=== PATIENT | female | born 1965 | race Caucasian/White ===

== ENCOUNTER → 2019-11-16 11:52 | Outpatient (CLI) | payer BC, OTHER, SELFPAY ==
--- NOTE | ~2019-11-16 | XR_ITS ---
EXAMINATION: XR knee LT 2V DATE: 11/16/2019 12:14 INDICATION: Left knee pain. TECHNIQUE: 2 views of left knee were obtained. COMPARISON: None. FINDINGS: Bone alignment is normal. No fracture. There is mild osteoarthritis of medial compartment. No knee joint effusion. IMPRESSION: 1. Mild left knee osteoarthritis. Reviewed, dictated and finalized at location A. 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
== END ==
PROVIDERS: PCP Physician Assistant; Visit Provider Physician Assistant
DX: M17.12 Unilateral primary osteoarthritis, left knee (principal)
CPT/HCPCS: 73560

== ENCOUNTER → 2020-06-06 10:34 | Outpatient (CLI) | payer BC, OTHER, SELFPAY ==
--- NOTE | ~2020-06-06 | XR_ITS ---
EXAMINATION: XR_CERV2-3V_CR EXAM DATE: 06/06/2020 10:47 INDICATION: Cervicalgia. TECHNIQUE: Frontal, lateral, lateral swimmers projection cervical spine. There is no prior study fo r comparison. FINDINGS: There is moderate disc disease at C5-6 with 2 mm retrolisthesis. The vertebral body and di sc heights are otherwise well maintained. The vertebral bodies are otherwise aligned. Straightening o f normal cervical lordosis could be positional or spasm. There is mild to moderate cervical arthropat hy. The odontoid process is intact. The lateral masses of C1 line up with C2. IMPRESSION: 1. Moderate C5-6 disc disease. 2. Mild to moderate cervical arthropathy. Reviewed, dictated and finalized at location B.
== END ==
PROVIDERS: PCP Family Medicine; Visit Provider Family Medicine
DX: M50.322 Other cervical disc degeneration at C5-C6 level (principal)
CPT/HCPCS: 72040

== ENCOUNTER → 2020-06-07 16:02 | Outpatient (CLI) | payer BC, OTHER, SELFPAY ==
--- NOTE | ~2020-06-07 | MM_ITS ---
EXAMINATION: MM screening [facility] BI w johnna HISTORY: Screening mammogram TECHNIQUE: Craniocaudal and mediolateral oblique 3-D tomosynthesis images were obtained and synthetic 2-D images were generated. CAD analysis was submitted and interpreted. COMPARISON: 11/17/2018, 10/25/2017, 09/01/2016 BREAST PARENCHYMAL COMPOSITION: The breasts are almost entirely fatty. FINDINGS: There is no evidence of suspicious mass, calcification, or architectural distortion to sugg est malignancy in either breast. There has been no suspicious interval change. IMPRESSION: 1. No mammographic evidence of malignancy. 2. Recommend routine screening mammography in one year. BI-RADS Category 1: Negative Reviewed, dictated and finalized at location A.
== END ==
PROVIDERS: Visit Provider Obstetrics & Gynecology Gynecology
DX: Z12.31 Encounter for screening mammogram for malignant neoplasm of breast (principal)
CPT/HCPCS: 77063; 77067

== ENCOUNTER 2020-12-23 17:24 | Outpatient (CLI) | payer BC, OTHER, SELFPAY | END 2020-12-23 17:25 | disposition home or self-care (01) | LOC: ANHCOVIDVC 17:24 | PROVIDERS: PCP Family Medicine | DX: Z23 Encounter for immunization (principal) | CPT/HCPCS: 0001A; 91300 ==

== ENCOUNTER 2021-01-13 17:22 | Outpatient (CLI) | payer BC, OTHER, SELFPAY | END 2021-01-13 17:23 | disposition home or self-care (01) | LOC: ANHCOVIDVC 17:22 | PROVIDERS: PCP Family Medicine | DX: Z23 Encounter for immunization (principal) | CPT/HCPCS: 0002A; 91300 ==

== ENCOUNTER → 2021-06-11 07:16 | Outpatient (CLI) | payer OTHER, SELFPAY ==
--- NOTE | ~2021-06-11 | XR_ITS ---
XR knee LT 3V 06/11/2021 07:50 Indication: Left knee pain Procedure: 3 views left knee Comparison: 11/16/2019 Findings: No fracture, subluxation or dislocation. Small joint effusion. No foreign bodies. There is mild patellofemoral compartment osteoarthritis. Impression: 1: Mild osteoarthritis of the left knee. 2: Small joint effusion. Reviewed, dictated and finalized at location A. Impression: 1: Mild osteoarthritis of the left knee. 2: Small joint effusion.
== END ==
PROVIDERS: PCP Family Medicine; Visit Provider Family Medicine
DX: M17.12 Unilateral primary osteoarthritis, left knee (principal); M25.462 Effusion, left knee
CPT/HCPCS: 73562

== ENCOUNTER → 2021-08-05 07:27 | Outpatient (CLI) | payer OTHER, SELFPAY ==
--- NOTE | ~2021-08-05 | MM_ITS ---
EXAMINATION: MM screening [facility] BI w johnna HISTORY: Screening mammogram TECHNIQUE: Craniocaudal and mediolateral oblique 3-D tomosynthesis images were obtained and synthetic 2-D images were generated. CAD analysis was submitted and interpreted. COMPARISON: 06/07/2020, 11/17/2018, 10/25/2017 BREAST PARENCHYMAL COMPOSITION: The breasts are almost entirely fatty. FINDINGS: There is no evidence of suspicious mass, calcification, or architectural distortion to sugg est malignancy in either breast. There has been no suspicious interval change. IMPRESSION: 1. No mammographic evidence of malignancy. 2. Recommend routine screening mammography in one year. BI-RADS Category 1: Negative Reviewed, dictated and finalized at location A. H BRAZER
== END ==
PROVIDERS: PCP Family Medicine; Visit Provider Obstetrics & Gynecology Gynecology
DX: Z12.31 Encounter for screening mammogram for malignant neoplasm of breast (principal)
CPT/HCPCS: 77063; 77067

== ENCOUNTER → 2022-12-10 12:58 | Outpatient (CLI) | payer OTHER, SELFPAY ==
--- NOTE | ~2022-12-10 | MM_ITS ---
EXAMINATION: MM screening [facility] w johnna HISTORY: Screening TECHNIQUE: Craniocaudal and mediolateral oblique 3-D tomosynthesis images were obtained and synthetic 2-D images were generated. CAD analysis was submitted and interpreted. COMPARISON: Comparison to multiple prior studies sequentially, with oldest reviewed study dated 08/15. BREAST PARENCHYMAL COMPOSITION: The breasts are almost entirely fatty. FINDINGS: There is no evidence of suspicious mass, calcification, or architectural distortion to sugg est malignancy in either breast. There has been no suspicious interval change. IMPRESSION: 1. No mammographic evidence of malignancy. 2. Recommend routine screening mammography in one year. BI-RADS Category 1: Negative Reviewed, dictated and finalized at location A.
== END ==
PROVIDERS: PCP Internal Medicine; Visit Provider Obstetrics & Gynecology Gynecology
DX: Z12.31 Encounter for screening mammogram for malignant neoplasm of breast (principal)
CPT/HCPCS: 77063; 77067

== ENCOUNTER → 2023-01-20 15:43 | Outpatient (CLI) | payer OTHER, SELFPAY ==
--- NOTE | ~2023-01-20 | DEXA_ITS ---
Bone Density Report Name: KASSI RIVAS Age: 57 Sex: Female Ethnicity: White Date of : 1965 Indication: postmenopausal; screening for osteoporosis; prior fracture; hysterectomy; Referring Provider: RAY, KIET Study: Bone densitometry was performed. Exam Date: January 20, 2023 Accession number: [id number] Bone Density: Region BMD T-score Z-score Classification AP Spine (L1-L4) 1.008 -0.4 1.0 Normal Femoral Neck (Left) 0.776 -0.7 0.6 Normal Total Hip (Left) 1.006 0.5 1.4 Normal Femoral Neck (Right) 0.771 -0.7 0.5 Normal Total Hip (Right) 0.999 0.5 1.4 Normal Total Hip Mean 1.003 0.5 1.4 Normal World Health Organization criteria for BMD impression classify patients as: Normal (T-score at or above -1.0), Osteopenia (T-score between -1.0 and -2.5), or Osteoporosis (T-score at or below -2.5). 10-year Fracture Risk: FRAX not reported because: All T-scores for Spine Total, Hip Total, Femoral Neck at or above -1.0 Previous Exams: Region Exam Age BMD T-score BMD Change BMD Change Date g/cm2 vs Baseline vs Previous AP Spine(L1-L4) 01/20/2023 57 1.008 -0.4 -0.085* -0.003 11/17/2018 53 1.011 -0.3 -0.082* -0.082* 07/05/2014 48 1.093 0.4 Total Hip(Left) 01/20/2023 57 1.006 0.5 -0.032* -0.018 11/17/2018 53 1.024 0.7 -0.015 -0.015 07/05/2014 48 1.038 0.8 Total Hip(Right) 01/20/2023 57 0.999 0.5 -0.019 0.018 11/17/2018 53 0.982 0.3 -0.036* -0.036* 07/05/2014 48 1.018 0.6 *Denotes significance at 95% confidence level, LSC for AP Spine = 0.022 g/cm2, LSC for Total Hip = 0.027 g/cm2 Clinical Information Provided by Patient: Has had a low trauma fracture Has used the following medications: Vitamin D, MTV, LEVOTHYROXINE Has the following medical conditions: Hysterectomy Patient maximum height was 62.0 Menopause Age: 47 No regular weight bearing exercise Does not regularly consume dairy products Onset of menses at age 9 Number of children 2 Impression: The patient has normal bone mass. The patient has risk factors, including: previous fracture. No significant bone loss was observed. Discussion: BONE DENSITY IS ABOVE THE MINIMUM DESIRABLE LEVEL AT ALL SKELETAL SITES TESTED. This patient?s bone mineral density is above the minimum desirable level (T-score -1.0 or better) at all sites measured. The
== END ==
PROVIDERS: PCP Internal Medicine; Visit Provider Nurse Practitioner
DX: Z78.0 Asymptomatic menopausal state (principal)
CPT/HCPCS: 77080

== ENCOUNTER 2023-03-05 01:42 | Day surgery (SDC) | payer OTHER, SELFPAY ==
[2023-03-01 17:51] VITALS: BMI 46.4
--- NOTE | 2023-03-01 17:55 | SUR.PREOP ---
Report to the Outpatient Waiting Room, entrance under the green pavilion located off [facility], at time 1000 on date _03/05/23_. Planned Procedure Time: 1200. Time changes happen often and if your time is changed the preop area will call you the afternoon before. - You and your visitor will be asked to self-screen and do not enter if you have any COVID symptoms. - A mask is optional within the hospital at this time. Patients may have clear liquids (water, carbonated beverages, clear teas, apple juice) until 3 hours prior to surgery with a maximum of 20 ounces. - No food from midnight until time of surgery BEFORE 0900 - Infants may have breast milk until 4 hours before surgery, infant formula 6 hours prior to surgery. - Children will be allowed to drink immediately following surgery. If applicable, please bring a bottle or sippy cup to assist with drinking. Juice, water, soda, and popsicles are readily available. For infants on formula, please bring formula the day of surgery. Pacifiers are allowed. Take the following medications with a SIP of water the morning of surgery: ___LEVOTHYROXINE DO NOT STOP ANY OF YOUR OTHER PRESCRIPTION MEDICATIONS PRIOR TO SURGERY ?EXCEPT THE FOLLOWING Medications to discontinue per physician Date to take last dose Please no make-up, nail khmer, hairspray, perfume, deodorant, or body powder the day of surgery. No jewelry (including any body piercings) or valuables the day of surgery, leave them at home. Please take a shower or bath the night before, or the morning of, surgery with an antibacterial soap. Wear comfortable, loose fitting clothing. Children are encouraged to wear pajamas. - Jewelry must be removed prior to entering the operating room. Rings and piercings that are not removed may be cut off. - The hospital will not accept responsibility for valuables. - Please leave all valuables, including medications, at home the day of surgery. If you are going home after surgery, a licensed peg driver must drive you home. - NO public transportation without another adult if you receive anesthesia. - We recommend that an adult stay with you for 24 hours following discharge. - We also recommend that you do not drive, make important decision, drink alcoholic beverages, or take any drugs that were not prescribed by your health care provider for at least 24 hours after your discharge time. For Pediatric surgeries, we recommend two adults accompany the child home. Follow any additional instructions given to you from your surgeon. If you or anyone in your household have experienced Covid symptoms in the past week, please notify your surgeon or the nurse liaison at the phone number below for possible testing. Telephone instructions given to _PATIENT_and asked if any additional questions and then verbalized understanding. Patient advised to call surgeon office or pre surgery nurse liaison [phone] if any additional questions.
[2023-03-05] VITALS (10 sets, daily range): BP systolic 98–141; BP diastolic 59–81; PULSE 75–84; RESP 14–18; TEMP 36.3–37; O2SAT 93–100; BMI 46.6
[2023-03-05] MEDS: LACTATED RINGERS 1,000 ML 30 ML IV CONT ×2 (10:40→13:45)
--- NOTE | 2023-03-05 10:41 | P.PNAN_ITS ---
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 Patient Data Age: 57 Gender: F Height: 1.57 m Weight: 115.21 kg Allergies Allergy/AdvReac Type Severity Reaction Status Date / Time hydrocodone Allergy Intermediate Swelling,SO Verified 03/05/23 10:16 B lactose AdvReac Severe digestive Verified 03/05/23 10:16 upset; inflammation povidone-iodine AdvReac Intermediate Hives / Verified 03/05/23 10:16 Red Face Home Medications Medication Instructions Recorded Confirmed Type fluticasone 250 mcg-salmeterol 50 1 inh inhalation DAILY 08/17/19 03/01/23 History mcg/dose blistr powdr for inhalation (Advair Diskus) levothyroxine 75 mcg tablet 75 mcg PO DAILY 08/17/19 03/05/23 History venlafaxine 75 mg capsule,extended 75 mg PO HS 03/01/23 03/01/23 History release 24 hr Patient hx anesthesia problems: none Family hx anesthesia problems: none Results Review: All pre-operative results and documents have been reviewed as part of the pre- operative evaluation. [facility] Past Medical History Medical History Allergic rhinitis Alvarenga's palsy Bronchitis Hypothyroid Migraine Migraine Mild persistent asthma with exacerbation Mixed hyperlipidemia Morbid obesity Normal colonoscopy (~2018) Vitamin D deficiency Family History Family History Mother Patient's mother is in good health Family history of elevated blood lipids Father Patient's father is in good health Hypertension Sibling Patient's brother is in good health Other Cerebrovascular accident Diabetes mellitus Family history of allergic disorder Family history of cardiovascular disease Family history of malignant neoplasm Social History Social History (Updated 06/03/21 @ 16:09 by Marisol Shah) Smoking status: Never smoker Second hand tobacco smoke exposure: No Alcohol intake: current Substance use: never Substance use type: does not use Living arrangements: alone Gender identity (if verbalized by the patient): Female Anes - Evkofi Final PreProcedure Day of Procedure 03/05/23 10:41 Patient weight: morbidly obese Heart: regular rate and rhythm Lungs: clear to auscultation Airway: Mallampati scale class II Neurological: alert and oriented Last oral intake: >/= 8 hours ASA classification: III Emergent: no Anesthetic plan: proceed Anesthesia type and monitoring: general GIVS and LMA and standard monitoring Results Review: All pre-operative results and documents have been reviewed as part of the pre- operative evaluation. Informed Consent: The patient's anesthetic plan and its attendant risks and benefits were discussed with the patient/family/POA. Questions were solicited and answers provided to the satisfaction of the patient/family/POA.
--- NOTE | 2023-03-05 11:50 | WPDANESEPPF ---
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 Patient Data Age: 57 Gender: F Height: 1.57 m Weight: 115.7 kg Last Vital Signs Temp 37.0 C 03/05/23 10:15 Pulse 80 03/05/23 10:15 Resp 16 03/05/23 10:15 BP 141/81 H 03/05/23 10:15 Pulse Ox 98 03/05/23 10:15 O2 Del Method Room Air 03/05/23 10:15 Allergies Allergy/AdvReac Type Severity Reaction Status Date / Time hydrocodone Allergy Intermediate Swelling,SO Verified 03/05/23 10:16 B lactose AdvReac Severe digestive Verified 03/05/23 10:16 upset; inflammation povidone-iodine AdvReac Intermediate Hives / Verified 03/05/23 10:16 Red Face Home Medications Medication Instructions Recorded Confirmed Type fluticasone 250 mcg-salmeterol 50 1 inh inhalation DAILY 08/17/19 03/01/23 History mcg/dose blistr powdr for inhalation (Advair Diskus) levothyroxine 75 mcg tablet 75 mcg PO DAILY 08/17/19 03/05/23 History venlafaxine 75 mg capsule,extended 75 mg PO HS 03/01/23 03/01/23 History release 24 hr Patient hx anesthesia problems: none Family hx anesthesia problems: none Results Review: All pre-operative results and documents have been reviewed as part of the pre-operative evaluation. [facility] Past Medical History Medical History Allergic rhinitis Alvarenga's palsy Bronchitis Hypothyroid Migraine Migraine Mild persistent asthma with exacerbation Mixed hyperlipidemia Morbid obesity Normal colonoscopy (~2018) Vitamin D deficiency Surgical History Surgical History (Updated 03/05/23 @ 11:50 by Thomas Harris MD) History of section History of cholecystectomy Family History Family History Mother Patient's mother is in good health Family history of elevated blood lipids Father Patient's father is in good health Hypertension Sibling Patient's brother is in good health Other Cerebrovascular accident Diabetes mellitus Family history of allergic disorder Family history of cardiovascular disease Family history of malignant neoplasm Social History Social History Smoking status: Never smoker Second hand tobacco smoke exposure: No Alcohol intake: current Substance use: never Substance use type: does not use Living arrangements: alone Gender identity (if verbalized by the patient): Female Anes - Eval Final PreProcedure Day of Procedure 03/05/23 11:50 Patient weight: morbidly obese Heart: regular rate and rhythm Lungs: clear to auscultation Airway: Mallampati scale class II Neurological: alert and oriented Last oral intake: >/= 8 hours ASA classification: III Emergent: no Anesthetic plan: proceed Anesthesia type and monitoring: general and standard monitoring Results Review: All pre-operative results and documents have been reviewed as part of the pre-operative evaluation. Informed Consent: The patient's anesthetic plan and its attendant risks and benefits were discussed with the patient/family/POA. Questions were solicited and answers provided to the satisfaction of the patient/family/POA.
--- NOTE | 2023-03-05 11:57 | PM.IMHP ---
H&P: HPI History of Present Illness Date/Time: 03/05/23 11:57 Chief Complaint: Painful heel and second toe left foot Narrative: Patient with painful heel and second toe that has failed conservative care. Review of Systems Musculoskeletal: Comments: medially deviated second toe left foot Painful bony prominence left heel Neurologic: Comments: Intact to light touch PMFSH Past Medical History Medical History (Updated 03/05/23 @ 12:10 by Darryl Araujo DPM) Allergic rhinitis Alvarenga's palsy Bronchitis Hypothyroid Migraine Migraine Mild persistent asthma with exacerbation Mixed hyperlipidemia Morbid obesity Normal colonoscopy (~2018) Vitamin D deficiency Surgical History Surgical History (Updated 03/05/23 @ 11:50 by Thomas Harris MD) History of section History of cholecystectomy Family History Family History Mother Patient's mother is in good health Family history of elevated blood lipids Father Patient's father is in good health Hypertension Sibling Patient's brother is in good health Other Cerebrovascular accident Diabetes mellitus Family history of allergic disorder Family history of cardiovascular disease Family history of malignant neoplasm Social History Social History Smoking status: Never smoker Second hand tobacco smoke exposure: No Alcohol intake: current Substance use: never Substance use type: does not use Living arrangements: alone Gender identity (if verbalized by the patient): Female Meds Home Medications and Allergies Home Medications Medication Instructions Recorded Confirmed Type fluticasone 250 mcg-salmeterol 50 1 inh inhalation DAILY 08/17/19 03/01/23 History mcg/dose blistr powdr for inhalation (Advair Diskus) levothyroxine 75 mcg tablet 75 mcg PO DAILY 08/17/19 03/05/23 History venlafaxine 75 mg capsule,extended 75 mg PO HS 03/01/23 03/01/23 History release 24 hr Allergies Allergy/AdvReac Type Severity Reaction Status Date / Time hydrocodone Allergy Intermediate Swelling,SO Verified 03/05/23 10:16 B lactose AdvReac Severe digestive Verified 03/05/23 10:16 upset; inflammation povidone-iodine AdvReac Intermediate Hives / Verified 03/05/23 10:16 Red Face Vital Signs Vital Signs - 24 hr 03/05/23 10:15 Temperature 37.0 C Pulse Rate 80 Respiratory Rate 16 Blood Pressure 141/81 H Pulse Oximetry 98 Oxygen Delivery Room Air Exam Neuro: Sensory Exam: normal sensation Extrem: Other: Painful prominence left heel medially deviated left second toe Assessment and Plan Assessment and plan (1) Kamran's deformity of left heel: Code(s): M92.62 - Juvenile osteochondrosis of tarsus, left ankle Status: Acute Plan Excision haglunds deformity left Tenotomy left second toe
[2023-03-05] MEDS: ceFAZolin 2 GM/D5W 50 ML 2 GM/50 ML BAG IVPB (12:14)
[2023-03-05] MEDS: LIDOCAINE HCL 2% PF INJ 5 ML VIAL 20 ML INFILTRATE (13:21)
--- NOTE | 2023-03-05 13:28 | PM.OP ---
Procedure Note - Brief Procedure Note - Brief Date of procedure: 03/05/23 kamran's deformity left foot hammertoe second toe left Post-op diagnosis: Same Procedure performed: Excision of Kamran's deformity left Tenotomy second toe left Surgeon: Darryl Araujo DPM Assembly Operator: None Anesthesia: GLMA Description of procedure: Under monitored sedation patient was brought into the operating room, placed on the operating table. Following administration of general anesthesia patient was placed in the lateral position. The foot was then scrubbed, prepped and draped in the usual aseptic manner. Esmark bandage used to exsanguinate the patient?s right leg and the ankle tourniquet was inflated to 350mm. Attention was then directed to the lateral aspect of the calcaneus at the insertion of the Achilles tendon where a linear incision was made. It was deepened down to the level of the insertion of the tendon using sharp and blunt dissection with care being taken to identify and retract all vital and neuro and vascular structures. The retrocalcaneal exostosis was removed using the bone saw and the osteotome and mallet. All rough edges were smoothed with bryan and the Achilles tendon was the reattached to the bone using the Reel-x anchor. The suture on the anchor broke so a second anchor was also used. Wound was flushed with copious amounts of sterile normal saline. The deep tissue repaired using 3-0 vicryl and the skin was repaired using 5-0 vicryl. Next attention was directed to the 2nd MPJ where a stab incision was made and the extensor tendon was transected. The wound was covered with dry, sterile compressive dressing consisting of steristrips, antibiotic ointment, Adaptic, 4 x 4?s, and Kerlix. A below the knee fiberglass cast was applied. The tourniquet was deflated with prompt hyperemic response noted to all digits. Implants: [place] Reel-x anchor Estimated blood loss (mL): 1 Complications: No immediate complications Condition: Stable Disposition: PACU
[2023-03-05] MEDS: fentaNYL CITRATE INJ (*CRX) 100 MCG/2 ML VIAL 25 MCG IV PUSH ×2 (14:08→14:15)
--- NOTE | 2023-04-08 13:39 | P.OP_ITS ---
Procedure Note - Detailed Date of Procedure 03/05/23 Pre-op Diagnosis kamran's deformity left foot Post-op Diagnosis Same Procedure Performed Excision of Kamran's deformity left Surgeon Darryl Araujo, RODNEY Residential Appraiser None Anesthesia General Indications Pain left foot Description of Procedure Under monitored sedation patient was brought into the operating room, placed on the operating table. Following administration of general anesthesia patient was placed in the lateral position. The foot was then scrubbed, prepped and draped in the usual aseptic manner. Esmark bandage used to exsanguinate the patient?s right leg and the ankle tourniquet was inflated to 250mm. Attention was then directed to the lateral aspect of the calcaneus at the insertion of the Achilles tendon where a linear incision was made. It was deepened down to the level of the insertion of the tendon using sharp and blunt dissection with care being taken to identify and retract all vital and neuro and vascular structures. The retrocalcaneal exostosis was removed using the bone saw and the osteotome and mallet. All rough edges were smoothed with bur and the Achilles tendon was the reattached to the bone using the Reel-x anchor. The suture on the anchor broke so a second anchor was also used. Wound was flushed with copious amounts of sterile normal saline. The deep tissue repaired using 3-0 vicryl and the skin was repaired using 5-0 vicryl. The wound was covered with dry, sterile compressive dressing consisting of steristrips, antibiotic ointment, Adaptic, 4 x 4?s, and Kerlix. A below the knee fiberglass cast was applied. The tourniquet was deflated, prompt capillary refill response noted to all digits of the left foot. Patient tolerated procedure and anesthesia well. He was transferred to the recovery room with vital signs stable and neurovascular status intact to all digits of the left foot. Following a period of post-operative monitoring the patient will be discharged home with written and oral post-operative instructions. Estimated Blood Loss -1.0 Drains No Packing No Pathology None sent Complications No immediate complications Condition Stable Disposition PACU
== END 2023-03-05 16:10 | disposition home or self-care (01) ==
PROVIDERS: PCP Internal Medicine; Visit Provider Podiatrist Foot & Ankle Surgery
PROC: (CPT 27650; principal; 2023-03-05 12:00)
DX: M92.62 Juvenile osteochondrosis of tarsus, left ankle (principal); M20.42 Other hammer toe(s) (acquired), left foot; E03.9 Hypothyroidism, unspecified; E66.01 Morbid (severe) obesity due to excess calories; Z68.42 Body mass index [BMI] 45.0-49.9, adult
CPT/HCPCS: 28010; 28118; A9270; J0690; J1100; J2250; J2370; J2405; J2704; J3010; J7120

== ENCOUNTER 2023-12-14 07:21 | Outpatient (CLI) | payer OTHER, SELFPAY ==
--- NOTE | ~2023-12-14 | MM_ITS ---
EXAMINATION: MM screening [facility] w johnna HISTORY: Screening TECHNIQUE: Craniocaudal and mediolateral oblique 3-D tomosynthesis images were obtained and synthetic 2-D images were generated. CAD analysis was submitted and interpreted. COMPARISON: Comparison to multiple prior studies sequentially, with oldest reviewed study dated 07/15. BREAST PARENCHYMAL COMPOSITION: The breasts are almost entirely fatty. FINDINGS: There is no evidence of suspicious mass, calcification, or architectural distortion to sugg est malignancy in either breast. There has been no suspicious interval change. IMPRESSION: 1. No mammographic evidence of malignancy. 2. Recommend routine screening mammography in one year. BI-RADS Category 1: Negative Reviewed, dictated and finalized at location A.
== END 2023-12-14 07:22 ==
LOC: MICIMG 07:22
PROVIDERS: PCP Internal Medicine; Visit Provider Nurse Practitioner
DX: Z12.31 Encounter for screening mammogram for malignant neoplasm of breast (principal)
CPT/HCPCS: 77063; 77067

== ENCOUNTER 2024-03-20 01:08 | Day surgery (SDC) | payer OTHER, SELFPAY ==
[2024-03-07 14:13] VITALS: BMI 52.0
[2024-03-20 13:05] VITALS: BP 157/99; PULSE 82; RESP 18; TEMP 36.1; O2SAT 94
[2024-03-20] MEDS: LACTATED RINGERS 1,000 ML 150 ML IV CONT (13:17)
--- NOTE | 2024-03-20 13:37 | WPDANESEPPF ---
Anes - Initial Pre Proc Eval Procedure: Operation Date: 03/20/24 15:30 Proposed Procedures p Esophagogastroduodenoscopy & Colonoscopy - Herman Sequeira MD Date/Time: 03/20/24 13:37 Surgeon: Herman Sequeira MD Pre Op Diagnosis: Epigastric pain, Gastroenteritis and colitis Patient Data Age: 58 Gender: F Height: 1.57 m Weight: 125.6 kg Last Vital Signs Temp 96.9 F L 03/20/24 13:05 Pulse 82 03/20/24 13:05 Resp 18 03/20/24 13:05 BP 157/99 H 03/20/24 13:05 Pulse Ox 94 03/20/24 13:05 O2 Del Method Room Air 03/20/24 13:05 Allergies Allergy/AdvReac Type Severity Reaction Status Date / Time hydrocodone Allergy Intermediate Swelling,SO Verified 03/20/24 13:04 B lactose AdvReac Severe digestive Verified 03/20/24 13:04 upset; inflammation povidone-iodine AdvReac Intermediate Hives / Verified 03/20/24 13:04 Red Face Home Medications Medication Instructions Recorded Confirmed Type levothyroxine 75 mcg tablet 75 mcg PO DAILY 08/17/19 03/20/24 History venlafaxine 75 mg capsule,extended 75 mg PO HS 03/01/23 03/07/24 History release 24 hr cholestyramine-aspartame 4 gram 1 ea PO DAILY 01/07/24 03/07/24 History oral powder (Cholestyramine Light) omeprazole 20 mg capsule,delayed 20 mg PO DAILY 01/07/24 03/07/24 History release Patient hx anesthesia problems: none Family hx anesthesia problems: none Results Review: All pre-operative results and documents have been reviewed as part of the pre-operative evaluation. [facility] Past Medical History Medical History Allergic rhinitis Alvarenga's palsy Bronchitis Hypothyroid Migraine Migraine Mild persistent asthma with exacerbation Mixed hyperlipidemia Morbid obesity Normal colonoscopy (~2019) Vitamin D deficiency Surgical History Surgical History History of section History of cholecystectomy Family History Family History Mother Patient's mother is in good health Family history of elevated blood lipids Father Patient's father is in good health Hypertension Sibling Patient's brother is in good health Other Cerebrovascular accident Diabetes mellitus Family history of allergic disorder Family history of cardiovascular disease Family history of malignant neoplasm Social History Social History Smoking status: Never smoker Second hand tobacco smoke exposure: No Alcohol intake: current Drinks per week: 2 Substance use: never Substance use type: does not use Living arrangements: alone Gender identity (if verbalized by the patient): Female Spiritual care concerns: No Anes - Eval Final PreProcedure Day of Procedure 03/20/24 13:37 Patient weight: super morbidly obese Heart: regular rate and rhythm Lungs: clear to auscultation Airway: Mallampati scale class II Neurological: alert and oriented Last oral intake: >/= 8 hours ASA classification: IV Emergent: no Anesthetic plan: proceed Anesthesia type and monitoring: general GIVS and standard monitoring Results Review: All pre-operative results and documents have been reviewed as part of the pre-operative evaluation. Informed Consent: The patient's anesthetic plan and its attendant risks and benefits were discussed with the patient/family/POA. Questions were solicited and answers provided to the satisfaction of the patient/family/POA.
--- NOTE | 2024-03-20 14:09 | PM.HPGS ---
History of Present Illness History of Present Illness Consent: Risks, benefits, and alternatives have been discussed and questions answered. Patient agrees to proceed with procedure. Chief complaint: Epigastric pain, Gastroenteritis and colitis Narrative: Erica Bernard is a 58 year old female here for egd and colonoscopy, epigastric pain, also diarrhea using imodium lately, last colonoscopy 2018 Review of Systems Review of Systems: All systems reviewed & are unremarkable except as noted in HPI and below PMFSH Past Medical History Medical History Allergic rhinitis Alvarenga's palsy Bronchitis Hypothyroid Migraine Migraine Mild persistent asthma with exacerbation Mixed hyperlipidemia Morbid obesity Normal colonoscopy (~2019) Vitamin D deficiency Surgical History Surgical History History of section History of cholecystectomy Family History Family History Mother Patient's mother is in good health Family history of elevated blood lipids Father Patient's father is in good health Hypertension Sibling Patient's brother is in good health Other Cerebrovascular accident Diabetes mellitus Family history of allergic disorder Family history of cardiovascular disease Family history of malignant neoplasm Social History Social History Smoking status: Never smoker Second hand tobacco smoke exposure: No Alcohol intake: current Drinks per week: 2 Substance use: never Substance use type: does not use Living arrangements: alone Gender identity (if verbalized by the patient): Female Spiritual care concerns: No Meds Home Medications and Allergies Home Medications Medication Instructions Recorded Confirmed Type levothyroxine 75 mcg tablet 75 mcg PO DAILY 08/17/19 03/20/24 History venlafaxine 75 mg capsule,extended 75 mg PO HS 03/01/23 03/07/24 History release 24 hr cholestyramine-aspartame 4 gram 1 ea PO DAILY 01/07/24 03/07/24 History oral powder (Cholestyramine Light) omeprazole 20 mg capsule,delayed 20 mg PO DAILY 01/07/24 03/07/24 History release Allergies Allergy/AdvReac Type Severity Reaction Status Date / Time hydrocodone Allergy Intermediate Swelling,SO Verified 03/20/24 13:04 B lactose AdvReac Severe digestive Verified 03/20/24 13:04 upset; inflammation povidone-iodine AdvReac Intermediate Hives / Verified 03/20/24 13:04 Red Face Vital Signs Vital Signs - 24 hr 03/20/24 13:05 Temperature 96.9 F L Pulse Rate 82 Respiratory Rate 18 Blood Pressure 157/99 H Pulse Oximetry 94 Oxygen Delivery Room Air Exam Const: General: comfortable and no acute distress HENMT: Face/Nose/Sinus: Normal nares present Eyes: General: appearance normal, both eyes and all related structures Neck: Neck: no JVD Resp: Auscultation: clear to auscultation bilaterally Cardio: Rate: regular rate Rhythm: regular rhythm GI: Inspection: non-distended GI Palp: Yes Soft to palpation Skin: General skin exam: normal color Neuro: General: gait normal Speech: normal speech Extrem: General: normal to inspection Psych: Mental Status: mental status grossly normal Assessment and Plan Assessment and plan (1) Chronic diarrhea: Code(s): K52.9 - Noninfective gastroenteritis and colitis, unspecified Status: Acute Assessment and Plan: colonoscopy with random colon bx (2) Epigastric pain: Code(s): R10.13 - Epigastric pain Status: Acute Assessment and Plan: egd
--- NOTE | 2024-03-20 14:16 | SUR.OPER ---
EGD: [id number] END-1418, COLON: START1422 END-1431
[2024-03-20 14:34] VITALS: BP 168/103; PULSE 88; RESP 21; O2SAT 98
[2024-03-20 14:44] VITALS: BP 150/85; PULSE 78; RESP 17; O2SAT 98
[2024-03-20 14:54] VITALS: BP 123/73; PULSE 72; RESP 19; O2SAT 97
== END 2024-03-20 14:59 | disposition home or self-care (01) ==
PROVIDERS: PCP Internal Medicine; Visit Provider Internal Medicine Gastroenterology
PROC: 0DJ08ZZ Inspection of Upper Intestinal Tract, Via Natural or Artificial Opening Endoscopic (ICD-10-PCS; CPT 43235; principal; 2024-03-20 15:30)
DX: K29.50 Unspecified chronic gastritis without bleeding (principal); K64.8 Other hemorrhoids; K63.89 Other specified diseases of intestine; E03.9 Hypothyroidism, unspecified; E78.2 Mixed hyperlipidemia; E55.9 Vitamin D deficiency, unspecified; J45.909 Unspecified asthma, uncomplicated; G51.0 Bell's palsy; E66.01 Morbid (severe) obesity due to excess calories; Z68.43 Body mass index [BMI] 50.0-59.9, adult; Z98.890 Other specified postprocedural states; Z90.49 Acquired absence of other specified parts of digestive tract; Z80.9 Family history of malignant neoplasm, unspecified; Z82.49 Family history of ischemic heart disease and other diseases of the circulatory system
CPT/HCPCS: 43239; 45380; 88305; J2704; J7120

== ENCOUNTER 2024-08-01 08:05 | Emergency (ER) | payer OTHER, SELFPAY ==
--- NOTE | 2024-08-01 08:11 | ED_ITS ---
HPI - URI/Sore Throat General Chief Complaint: Upper Respiratory Infection Stated Complaint: sinus infection Time Seen by Provider: 08/01/24 08:10 Source: patient Mode of arrival: ambulatory Limitations: no limitations History of Present Illness HPI Narrative: Erica is a 58-year-old female patient presenting to the clinic today with complaints of possible sinus infection. She reports she is having nasal congestion, nausea, body aches, low-grade fever, and sinus pressure. Reports symptoms started on Wednesday with a slight sore throat however the sore throat has now resolved. Denies cough, chest pain, or shortness of breath MD elicited complaint: fever, nasal congestion (Body aches) and sinus pain Related Data Home Medications Medication Instructions Recorded Confirmed levothyroxine 75 mcg tablet 75 mcg PO DAILY 08/17/19 08/01/24 venlafaxine 75 mg capsule,extended 75 mg PO HS 03/01/23 08/01/24 release 24 hr fluticasone fur. 200 mcg-umeclid 1 inh inhalation DAILY 08/01/24 08/01/24 62.5 mcg-vilant 25 mcg inhalat.powder (Trelegy Ellipta) Allergies Allergy/AdvReac Type Severity Reaction Status Date / Time hydrocodone Allergy Intermediate Swelling,SO Verified 08/01/24 08:11 B lactose AdvReac Intermediate digestive Verified 08/01/24 08:11 upset; inflammation povidone-iodine AdvReac Intermediate Hives / Verified 08/01/24 08:11 Red Face Review of Systems Review of Systems: Pertinent positives per HPI. Patient denies any rash, headache, visual changes, dizziness, cough, shortness of breath, chest pain, palpitations, vomiting, diarrhea, constipation, abdominal pain, or any urinary issues. [facility] Past Medical History Medical History Allergic rhinitis Alvarenga's palsy Bronchitis Hypothyroid Migraine Migraine Mild persistent asthma with exacerbation Mixed hyperlipidemia Morbid obesity Normal colonoscopy (~2019) Vitamin D deficiency Surgical History Surgical History History of section History of cholecystectomy Family History Family History Mother Patient's mother is in good health Family history of elevated blood lipids Father Patient's father is in good health Hypertension Sibling Patient's brother is in good health Other Cerebrovascular accident Diabetes mellitus Family history of allergic disorder Family history of cardiovascular disease Family history of malignant neoplasm Social History Social History Smoking status: Never smoker Second hand tobacco smoke exposure: No Alcohol intake: current Drinks per week: 2 Substance use: never Substance use type: does not use Living arrangements: alone Gender identity (if verbalized by the patient): Female Spiritual care concerns: No Comments At the time of my signature, I reviewed and agree with the nursing past medical, surgical, social, and family history. There is no relevant family history pertinent to the patient complaint. Exam Narrative: General: Well-developed, morbidly obese, in no apparent distress Head: Normocephalic, atraumatic Eyes: Pupils equally round and reactive to light bilaterally, EOM intact, sclera and conjunctive clear, no discharge, lids normal Ears: TMs intact and clear, ear canals clear, no drainage, grossly hearing normal. Nose: Nares patent, clear nasal discharge, no inflammation, no sinus tenderness. Mouth: Oral pharynx red without lesions or masses, good dentition, MMM. Postnasal drip Neck: Supple, trachea midline, no enlargement of anterior or posterior cervical nodes, no thyroid masses or goiter palpable. Cardio: Regular rate and rhythm, s1 and s2 normal, no murmur appreciated. Resp: Clear to auscultation bilaterally, no rhonchi, rales, wheezing or rubs Course Course Emergency Course: Portions of this record may have been created with voice recognition software. Level of Care: Express Care Visit Vital Signs Vital signs: Vital signs reviewed MDM - URI/Sore Throat MDM Narrative Medical decision making narrative: At the time of visit patient is resting comfortably on the exam table. Patient appears to be nontoxic. Labs: COVID and influenza testing was performed. All testing was negative. Plan: I suspect patient has URI/viral syndrome. Supportive measures were discussed with the patient and they voiced understanding discharge instructions and agrees to treatment plan. Return precautions reviewed Differential Diagnosis Differential diagnosis: Likely upper respiratory infection, otitis media, sinusitis, viral infection, bronchitis, influenza, pharyngitis and other (COVID) Discharge Plan Discharge Clinical Impression: Upper respiratory infection, Viral infection Patient Disposition: Home, Self-Care Condition: Stable Instructions: Antibiotic Form, Viral Syndrome (ED), Cold Symptoms (ED) Additional Instructions: COVID and influenza testing is negative in the clinic today. May take DayQuil/NyQuil for cold/flu symptoms Increase fluids and stay well hydrated Tylenol/motrin for pain/fever Flonase and OTC antihistamines such as Zyrtec or Claritin as directed Vicks vapor rub to open sinuses Sinus rinses for congestion Cepacol spray, cough drops, throat lozenges, warm tea with honey/lemon, gargle salt water to soothe throat BRAT diet for diarrhea Clear liquids x 24 hours then advance as tolerated for nausea/vomiting Go to the ED if you develop a worsening in your condition- high fever not controlled by Tylenol or Motrin, dehydration, weakness, lethargy, shortness of breath, or chest pain. Follow up with your PCP in 3-5 days if symptoms persist. Prescriptions: No Action Trelegy Ellipta 200-62.5-25 mcg blister with device 1 inh INHALATION DAILY omeprazole 20 mg capsule,delayed release(DR/EC) 20 mg PO DAILY Qty: 90 3RF colestipol [Colestid] 1 gram tablet 1 g PO BID Qty: 60 11RF levothyroxine 75 mcg tablet 75 mcg PO DAILY venlafaxine 75 mg capsule,extended release 24hr 75 mg PO HS Follow-up/Referrals: Viridiana,Kelley Porras MD [Primary Care Provider] - Time of Disposition: 08:34 Quality NIHSS Nursing Documentation ED NIHSS nursing documentation: reviewed/agree
[2024-08-01 08:22] VITALS: BP 143/97; PULSE 84; RESP 18; TEMP 36.7; O2SAT 96
[2024-08-01 08:39] LABS: EDCOVIDSCREEN Negative (Negative); EDINFLUASCREEN Negative (Negative); EDINFLUBSCREEN Negative (Negative)
== END 2024-08-01 08:36 | disposition home or self-care (01) ==
LOC: EXPTROY 08:12
PROVIDERS: Emergency Provider Nurse Practitioner Family; PCP Internal Medicine
DX: J06.9 Acute upper respiratory infection, unspecified (principal); E78.2 Mixed hyperlipidemia; E03.9 Hypothyroidism, unspecified; Z79.899 Other long term (current) drug therapy; Z20.822 Contact with and (suspected) exposure to COVID-19
CPT/HCPCS: 87426; 87804; 99212; G0463

== ENCOUNTER 2025-01-16 07:28 | Outpatient (CLI) | payer OTHER, SELFPAY ==
--- NOTE | ~2025-01-16 | MM_ITS ---
EXAMINATION: MM screening juan pablo BI w johnna HISTORY: Screening TECHNIQUE: Craniocaudal and mediolateral oblique 3-D tomosynthesis images were obtained and synthetic 2-D images were generated. CAD analysis was submitted and interpreted. COMPARISON: Comparison to multiple prior studies sequentially, with oldest reviewed study dated 10/25. BREAST PARENCHYMAL COMPOSITION: Not Dense: The breasts are almost entirely fatty. FINDINGS: There is no evidence of suspicious mass, calcification, or architectural distortion to sugg est malignancy in either breast. There has been no suspicious interval change. IMPRESSION: 1. No mammographic evidence of malignancy. 2. Recommend routine screening mammography in one year. BI-RADS Category 1: Negative Reviewed, dictated and finalized at location A.
== END 2025-01-16 07:29 | disposition home or self-care (01) ==
LOC: MICIMG 07:29
PROVIDERS: PCP Internal Medicine; Visit Provider Nurse Practitioner
DX: Z12.31 Encounter for screening mammogram for malignant neoplasm of breast (principal)
CPT/HCPCS: 77063; 77067